=== PATIENT | female | born 1975 | race Caucasian/White ===

== ENCOUNTER 2019-06-01 05:51 | Outpatient (CLI) | payer BC ==
[~2019-06-01] VITALS: Ht 167.6 cm; Wt 53.1 kg
== END 2019-06-01 10:51 | disposition home or self-care (01) ==
LOC: PREOP 05:51
PROVIDERS: ATTEND Surgery
DX: Z01.818 Encounter for other preprocedural examination (principal)

== ENCOUNTER 2019-06-03 06:06 | Day surgery (SDC) | payer BC ==
[~2019-06-03] VITALS: Ht 167.6 cm; Wt 53.1 kg
[2019-06-03] VITALS (8 sets, daily range): BP systolic 128–140; BP diastolic 79–91
[2019-06-03] MEDS ORDERED: ceFAZolin INJECTION 1,000 MG in WATER (STERILE) FOR INJECTION 10 ML IV ONE (06:15)
[2019-06-03] MEDS ORDERED: LACTATED RINGERS 1,000 ML IV PRN (06:15)
[2019-06-03] MEDS ORDERED: ceFAZolin INJECTION 1,000 MG ONE (06:31)
[2019-06-03] MEDS ORDERED: proPOfol 200 MG/20 ML (DIPRIVAN) VIAL IV ONE (06:35)
[2019-06-03] MEDS ORDERED: fentaNYL INJECTION 100 MCG/2 ML AMP ONE (06:35)
[2019-06-03] MEDS ORDERED: LIDOCAINE PF 2% 5 ML (XYLOCAINE) VIAL ONE (06:35)
[2019-06-03] MEDS ORDERED: MIDAZOLAM 2 MG/2 ML (VERSED) VIAL ONE (06:35)
[2019-06-03] MEDS ORDERED: SEVOFLURANE (ULTANE) 15 ML INHAL SOLN ONE (06:42)
[2019-06-03] MEDS ORDERED: BUP/EPI 0.5% 1:200,000 (MARCAINE) 10ML VIAL IJ ONE ×2 (07:07)
--- NOTE | 2019-06-03 07:22 | Progress Note-Pre Operative ---
Pre-Operative Progress Note H&P Reviewed The H&P was reviewed, patient examined and no changes noted. Date Seen by Provider: Jun 03, 2019 Time Seen by Provider: 07:22 Date H&P Reviewed: Jun 03, 2019 Time H&P Reviewed: 07:22 Pre-Operative Diagnosis: right groin mass CARIE MENSAH DO Jun 03, 2019 07:22
--- NOTE | 2019-06-03 08:06 | Progress Note-Post Operative ---
Post-Operative Progess Note Surgeon (s)/Chart Reader (s) Surgeon CARIE MENSAH DO Chart Reader: NA Pre-Operative Diagnosis right groin mass Post-Operative Diagnosis SAME Procedure & Operative Findings Date of Procedure 06/03/19 Procedure Performed/Findings excision right groin mass 3x1.5cm Anesthesia Type gen Estimated Blood Loss Estimated blood loss (mL): min Specimens/Packing Specimens Removed right groin mass CARIE MENSAH DO Jun 03, 2019 08:06
--- NOTE | 2019-06-03 08:07 | Discharge Inst-Simple/Standard ---
Discharge Inst-Standard Patient Instructions/Follow Up Plan of Care/Instructions/FU: 2 weeks Ozzie Take over the counter medicine for pain, that you would take for headache. Activity as Tolerated: No Discharge Diet: Regular Diet Other Inst to Patient Follow up Appt: Make appointment for 2 week. Instructions: No strenuous activity. May shower in 24 hours, no tub bath or soaking. Use incentive spirometer at home as directed. No Smoking Skin/Wound Care: You have special glue over incision it will fall off on its own. Symptoms to Report: Appetite Changes, Extremity Discoloration, Numbness/Tingling, Swelling Increased, Bleeding Excessive, Eyesight Changes, Pain Increased, Urine Color Change, Constipation(Persistent), Fever over 101 degree F, Pain/Pressure in chest, Urinating Difficulty, Cough Up/Vomit Blood, Heart Beat Irreg/Pounding, Pain/Pressure in jaw, Vaginal Bleeding Increase, Cramps in feet or legs, Lightheadedness, Pain/Pressure in shoulder, Diarrhea(Persistent), Memory Changes Suddenly, Questions/Concerns, Weight gain consecutive days, Dizziness/Fainting, Nausea/Vomiting, Shortness of Breath, Weight gain over 2 pounds If questions or concerns contact your physician Or seek help at emergency department. CARIE MENSAH DO Jun 03, 2019 08:07
[2019-06-03] MEDS ORDERED: MEPERIDINE (DEMEROL) INJ 50 MG/ML IVP ONE (08:30)
[2019-06-03] MEDS ORDERED: HYDROmorphone 2 MG/ML VIAL (DILAUDID) IV ONE (08:30)
[2019-06-03] MEDS ORDERED: ONDANSETRON 4 MG/2 ML (SDV) Z0FRAN IVP PRN (08:30)
--- NOTE | 2019-06-03 11:38 | OPERATIVE REPORT ---
DATE OF SERVICE: 06/03/2019 PREOPERATIVE DIAGNOSIS: Right groin mass. POSTOPERATIVE DIAGNOSIS: Right groin mass. PROCEDURE: Excision of right groin mass 3 x 1.5 cm. SURGEON: Carie Horne DO ANESTHESIA: General. ESTIMATED BLOOD LOSS: Minimal. COMPLICATIONS: None. INDICATIONS: The patient is a 44-year-old female with a right groin mass. She understands risks and benefits of procedure and wished to proceed with procedure. Consent was signed in the chart. PROCEDURE IN DETAIL: The patient was taken to the operating suite. She was prepped and draped in sterile fashion. Surgical pause was performed. Local anesthetic was used to infiltrate the area. A 15 blade scalpel was used to make a skin incision and cautery was used to dissect down to the subcutaneous tissues. Right groin mass was about 3 x 1.5 cm, was present. Blunt and cautery dissection was used to dissect around the mass and remove it. The wound was then irrigated with copious amounts of irrigation. The subcutaneous tissues were then reapproximated using 3-0 Vicryl. The skin was then closed using 4-0 Monocryl in subcuticular fashion. The area was washed and dried and Skin Affix was placed over the incision. The patient tolerated procedure well without any complications. She was taken to recovery room in stable condition. 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
--- NOTE | 2019-06-03 14:24 | Anesthesia-General Post-Op ---
General Patient Condition Mental Status/LOC: Same as Preop Cardiovascular: Satisfactory Nausea/Vomiting: Absent Respiratory: Satisfactory Pain: Controlled Complications: Absent Post Op Complications Complications None Follow Up Care/Instructions Patient Instructions None needed. Anesthesia/Patient Condition Patient Condition Patient is doing well, no complaints, stable vital signs, no apparent adverse anesthesia problems. No complications reported per nursing. ISAIAS STOCKTON CRNA Jun 03, 2019 14:24
== END 2019-06-03 09:33 | disposition home or self-care (01) ==
LOC: SDC 06:06
PROVIDERS: ATTEND Surgery
DX: R59.0 Localized enlarged lymph nodes (principal); Z11.2 Encounter for screening for other bacterial diseases; Z80.0 Family history of malignant neoplasm of digestive organs; F17.210 Nicotine dependence, cigarettes, uncomplicated; M19.91 Primary osteoarthritis, unspecified site; M54.5 Low back pain
CPT/HCPCS: 84703; 87081

== ENCOUNTER 2019-06-12 16:22 | Emergency (ER) | payer BC ==
[~2019-06-12] VITALS: Ht 167.6 cm; Wt 53.1 kg
--- NOTE | 2019-06-12 17:12 | ED General ---
General Chief Complaint: Post OP Complications/Pain Stated Complaint: POST SURG WOUND PROBLEMS GROIN Nursing Triage Note: PT STATES HAVING SURGERY ON 06/03 ON HER RIGHT GROIN BY DR. HORNE. PT STATES FOR 1 WEEK SHE HAS NOTICED THE INCISION SITE "PROTUDING" PT DENIES FEVERS. PT STATES SHE DID NOT ATTEMPT TO CALL THE SURGEONS OFFICE FOR CONCERNS OF COMPLICATIONS. RIGHT GROIN INCINSIONS WITH NO SIGNS OF INFECTIONS. Nursing Sepsis Screen: No Definite Risk Source of Information: Patient Exam Limitations: No Limitations History of Present Illness Date Seen by Provider: Jun 12, 2019 Time Seen by Provider: 17:15 Initial Comments This 44-year-old woman presents to the emergency room with complaints of swelling and tightness at the site of a recent right groin mass excision performed by Dr. Horne on June 03. She reports the incision is well healing but she has had progressive swelling beneath the incision over the last several days. This seems to be worse when she is up and active. It does rub against her clothes and gets bumped and causes some irritation. She describes the mass is a cystic lesion. Pathology reports indicate a reactive lymph node. She has no erythema or drainage around the site. Allergies and Home Medications Allergies Coded Allergies: No Known Drug Allergies (Unverified , 06/03/19) Home Medications No Active Prescriptions or Reported Meds Patient Home Medication List Home Medication List Reviewed: Yes Review of Systems Review of Systems Constitutional: no symptoms reported EENTM: no symptoms reported Respiratory: no symptoms reported Cardiovascular: no symptoms reported Gastrointestinal: no symptoms reported Genitourinary: no symptoms reported : No Musculoskeletal: no symptoms reported Skin: see HPI Psychiatric/Neurological: No Symptoms Reported Hematologic/Lymphatic: See HPI Immunological/Allergic: no symptoms reported Past Abkxenr-Flrhwy-Hnutmo Hx Past Med/Social Hx: Reviewed Nursing Past Med/Soc Hx Patient Social History Type Used: Cigarettes Recent Foreign Travel: No Contact w/Someone Who Travel: No Recent Infectious Disease Expo: Yes Recent Hopitalizations: No Seasonal Allergies Seasonal Allergies: No Past Medical History Surgeries: Yes Oophorectomy, Tonsillectomy Respiratory: No Cardiac: No Neurological: No Genitourinary: No Gastrointestinal: No Musculoskeletal: Yes (arthritis in lower back) Arthritis Endocrine: No HEENT: Yes (dentures) Cancer: No Psychosocial: No Integumentary: No Blood Disorders: No Physical Exam Vital Signs Vital Signs - First Documented 06/12/19 16:34 Temp 96.5 Pulse 93 Resp 18 B/P (MAP) 132/95 (107) Pulse Ox 96 O2 Delivery Room Air Capillary Refill : Less Than 3 Seconds Height, Weight, BMI Height: 5'6.00" Weight: 117lbs. 0.0oz. 53.545498lb; 18.9 BMI Method:Stated General Appearance: No Apparent Distress, WD/WN HEENT: PERRL/EOMI, Normal ENT Inspection Respiratory: No Respiratory Distress Extremity: Normal Inspection Neurologic/Psychiatric: Alert, Oriented x3, No Motor/Sensory Deficits, Normal Mood/Affect Skin: Normal Color, Warm/Dry, Other (there is a well-healing intact incision in the right groin. There is fairly tight swelling beneath the incision in an area about 2 x 3 cm. This area is minimally tender. There is no erythema or inflammatory change to suggest infection.) Progress/Results/Core Measures Suspected Sepsis Recent Fever Within 48 Hours: No Infection Criteria Present: None New/Unexplained Altered Menta: No Sepsis Screen: No Definite Risk SIRS Temperature:96.5 Pulse: 93 Respiratory Rate: 18 Blood Pressure 132 /95 Mean: 107 Results/Orders Vital Signs/I&O Capillary Refill : Less Than 3 Seconds Blood Pressure Mean: 107 Progress Note : Progress Note Surgical wound showed no signs of infection. There was no drainage. Incision was intact. I suspect patient has developed a seroma. Close follow-up with Dr. Horne was recommended. Departure Impression Primary Impression: Postoperative edema Disposition: 01 HOME, SELF-CARE Condition: Stable Departure-Patient Inst. Decision time for Depature: 17:00 Referrals: NO,LOCAL PHYSICIAN (PCP/Family) Primary Care Physician Add. Discharge Instructions: Follow-up with Dr. Horne on Friday. Until then, you may continue applying ice in 20 minute intervals if that helps pain and swelling. Avoid excessive straining. You may apply a light compression dressing with gauze under tighter fitting clothes such as leggings. Return to the emergency room if you develop worsening symptoms such as redness or drainage at the site, escalating pain, or fever. Scripts No Active Prescriptions or Reported Meds Copy Copies To 1: CARIE HORNE JOSHUA T MD Jun 12, 2019 17:12
[2019-06-12 17:47] VITALS: BP 132/95
== END 2019-06-12 17:47 | disposition home or self-care (01) ==
LOC: EDUNIT# 16:22 → ER 16:24
DX: T81.89XA Other complications of procedures, not elsewhere classified, initial encounter (principal); M46.96 Unspecified inflammatory spondylopathy, lumbar region; F17.210 Nicotine dependence, cigarettes, uncomplicated; Z90.89 Acquired absence of other organs
CPT/HCPCS: 99281